=== PATIENT | male | born 1985 | race Caucasian/White ===

== ENCOUNTER 2018-10-25 11:02 | Day surgery (SDC) | payer OTHER ==
[~2018-10-25] VITALS: Ht 175.3 cm; Wt 114.7 kg
[~2018-10-25 11:02] MED LIST: FAMOTIDINE
[2018-10-25 11:57] VITALS: Ht 175.3 cm; Wt 114.7 kg
[2018-10-25 12:15] VITALS: BP 125/75; PULSE 71; RESP 16
[2018-10-25] MEDS ORDERED: LIDOCAINE 2% (SDV) 5 ML INJ ONE (12:54)
[2018-10-25] MEDS ORDERED: PROPOFOL 40 ML ONE (12:54)
[2018-10-25 13:59] VITALS: BP 137/73; RESP 20
== END 2018-10-25 15:27 | disposition home or self-care (01) ==
LOC: GIL 11:02
PROVIDERS: ATTEND Internal Medicine Gastroenterology
DX: K21.9 Gastro-esophageal reflux disease without esophagitis (principal); K29.50 Unspecified chronic gastritis without bleeding
CPT/HCPCS: 43239; 88305; 88312; Z7610